=== PATIENT | male | born 1980 | race Two or more races ===

== ENCOUNTER 2022-09-24 23:21 | Emergency (ER) | payer MEDICAID, OTHER ==
[~2022-09-24] VITALS: Ht 177.8 cm; Wt 86.2 kg
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
[2022-09-24 23:46] VITALS: BP 134/70
--- NOTE | 2022-09-24 23:46 | NUR ---
PT STATED NO MEDICAL ISSUES. PT STATED - SI/ HI
== END 2022-09-24 23:52 | disposition home or self-care (01) ==
LOC: ER 23:23
DX: F19.10 Other psychoactive substance abuse, uncomplicated (principal); F17.200 Nicotine dependence, unspecified, uncomplicated; Z60.2 Problems related to living alone